=== PATIENT | male | born 1990 | race Two or more races ===

== ENCOUNTER 2017-03-05 23:28 | Emergency (ER) | payer SELFPAY ==
[2017-03-05 23:49] VITALS: BP 132/97; BMI 25.4
[2017-03-06] MEDS ORDERED: ADACEL TDaP IM ONE ×2 (00:12→00:58)
[2017-03-06] MEDS ORDERED: ANCEF VIAL 1 GM IM ONE (00:12)
[2017-03-06] MEDS ORDERED: AUGMENTIN XR 1000/62.5MG TAB PO ONE (00:15)
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
[2017-03-06] MEDS ORDERED: ANCEF VIAL 1 GM ONE (00:57)
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
[2017-03-06] MEDS ORDERED: XYLOCAINE 2 % (PLAIN) ONE (00:59)
[2017-03-06] MEDS ORDERED: HYDROGEN PEROXIDE 3% ONE (01:07)
[2017-03-06] MEDS ORDERED: NEOSPORIN OINT ONE (01:29)
[2017-03-06] MEDS ORDERED: AUGMENTIN 500 MG/125 MG TAB PO ONE ×2 (01:36→01:46)
== END 2017-03-06 02:01 | disposition home or self-care (01) ==
LOC: ER 23:28
PROC: 0XQT0ZZ Repair Left Ring Finger, Open Approach (ICD-10-PCS; principal; 2017-03-05)
DX: S92.152A Displaced avulsion fracture (chip fracture) of left talus, initial encounter for closed fracture (principal); S61.315A Laceration without foreign body of left ring finger with damage to nail, initial encounter; W50.3XXA Accidental bite by another person, initial encounter; Y92.9 Unspecified place or not applicable
CPT/HCPCS: 12002; 73130; 90471; 96372; 99283; J0690; J2001